=== PATIENT | male | born 1990 | race Caucasian/White ===

== ENCOUNTER 2016-04-08 11:20 | Emergency (ER) | payer OTHER ==
[~2016-04-08] VITALS: Ht 185.4 cm; Wt 74.8 kg
[2016-04-08 11:21] VITALS: Ht 185.4 cm; Wt 74.8 kg
[2016-04-08 12:11] LABS: ADD SCAN DIFF NO
[2016-04-08 12:17] LABS: BASOPHILS % 0.3 % (0.0-2.0); EOSINOPHILS % 0.4 % (0.0-7.0); HEMATOCRIT 45.2 % (42.0-52.0); HEMOGLOBIN 15.6 g/dl (14.0-18.0); LYMPHOCYTES # 1.5 10^3/ul (0.8-2.9); LYMPHOCYTES % 15.2 % (15.0-51.0); MEAN CORPUSCULAR HEMOGLOBIN 33.3 pg (29.0-33.0); MEAN CORPUSCULAR HGB CONC 34.5 g/dl (32.0-37.0); MEAN CORPUSCULAR VOLUME 96.6 fl (82.0-101.0); MEAN PLATELET VOLUME 9.1 fl (7.4-10.4); MONOCYTE # 0.4 10^3/ul (0.3-0.9); MONOCYTES % 4.2 % (0.0-11.0); NEUTROPHIL # 7.7 10^3/ul (1.6-7.5); NEUTROPHILS % 79.3 % (39.0-77.0); PLATELET COUNT 293 10^3/UL (140-415); RED BLOOD COUNT 4.68 10^6/ul (4.70-6.10); RED CELL DISTRIBUTION WIDTH 12.9 % (11.5-14.5); WHITE BLOOD COUNT 9.7 10^3/ul (4.8-10.8)
[2016-04-08 12:29] LABS: ALBUMIN 4.9 g/dl (3.3-4.9); CHLORIDE 99 mmol/L (97-110); POTASSIUM 4.3 mmol/L (3.5-5.1); SODIUM 143 mmol/L (135-144)
[2016-04-08 12:31] LABS: CREATININE 0.87 mg/dl (0.61-1.24)
[2016-04-08 12:32] LABS: ALANINE AMINOTRANSFERASE 24 IU/L (13-69); ALBUMIN/GLOBULIN RATIO 1.48; ALKALINE PHOSPHATASE 64 IU/L (42-121); ANION GAP 19 (8-16); ASPARTATE AMINO TRANSFERASE 20 IU/L (15-46); BILIRUBIN,INDIRECT 0.4 mg/dl (0-1.1); BILIRUBIN,TOTAL 0.4 mg/dl (0.2-1.3); BLOOD UREA NITROGEN 14 mg/dl (7-20); CALCIUM 9.8 mg/dl (8.4-10.2); CARBON DIOXIDE 29 mmol/L (21-31); CREATINE KINASE 76 IU/L (23-200); GLUCOSE 105 mg/dl (70-220); TOTAL PROTEIN 8.2 g/dl (6.1-8.1)
[2016-04-08 12:45] LABS: CK-MB 0.29 ng/ml (0.0-2.4); TROPONIN-I < 0.012 ng/ml (0.00-0.12)
--- NOTE | 2016-04-08 13:03 | ERD ---
ER Documentation Chief Complaint Date/Time DATE: 04/08/16 TIME: 12:59 Chief Complaint C/O HAND PAIN , FEET PAIN , WANTS TO GET HIS BLOOD CHECKED HPI This is a 25-year-old male who presents to the emergency department today complaining of bilateral hand and wrist pain and feet pain that started 6 days ago. Patient states that on Monday he went to urgent care and had labs drawn and was told that he would not get results for several days. Patient states he has pain and tingling. States that he feels his hands are going to lock up". States he works in a [employer] department and does lots of lifting and cutting. States he wears proper footwear and special boots he is required to wear. Denies any fevers or chills. Denies any medical history. ROS All systems reviewed and are negative except as per history of present illness. PMhx/Soc Medical and Surgical Hx: pt denies Medical Hx, pt denies Surgical Hx Hx Alcohol Use: No Hx Substance Use: No Hx Tobacco Use: No Physical Exam Vitals Vital Signs Date Time Temp Pulse Resp B/P Pulse Ox O2 Delivery O2 Flow Rate FiO2 04/08/16 11:21 98.6 108 18 129/71 100 Physical Exam Const: NAD Head: Atraumatic Eyes: Normal Conjunctiva ENT: Normal External Ears, Nose and Mouth. Neck: Full range of motion..~ No meningismus. Resp: Clear to auscultation bilaterally Cardio: Regular rate and rhythm, no murmurs Abd: Soft, non tender, non distended. Normal bowel sounds Skin: No petechiae or rashes Back: No midline or flank tenderness MSK: Bilateral hands and forearms with no obvious deformity. No effusion. No ecchymosis. Full active range of motion. Pulses 2+. Distal neurovascularly intact. Bilateral feet tenderness to palpation MTP and plantar fascial area. No obvious deformity. No effusion. No ecchymosis. Pulses 2+. Distal neurovascularly intact. Neur: Awake and alert Psych: Normal Mood and Affect Result Diagram: 04/08/16 1200 04/08/16 1200 Results 24 hrs Laboratory Tests Test 04/08/16 11:46 04/08/16 12:00 Urine Bilirubin NEGATIVE Urine Clarity CLEAR Urine Color LT. YELLOW Urine Glucose NEGATIVE% Urine Hemoglobin TRACE Urine Ketones NEGATIVE Urine Leukocyte Esterase NEGATIVE Urine Microscopic RBC NONE SEEN/HPF Urine Microscopic WBC NONE SEEN/HPF Urine Nitrite NEGATIVE Urine Specific [place] 1.010 Urine Total Protein NEGATIVE Urine Urobilinogen 0.2 E.U./dL Urine pH 6.5 Alanine Aminotransferase (ALT/SGPT) 24IU/L Albumin 4.9g/dl Albumin/Globulin Ratio 1.48 Alkaline Phosphatase 64IU/L Anion Gap 19 Aspartate Amino Transf (AST/SGOT) 20IU/L Basophils # 0.010^3/ul Basophils % 0.3% Blood Urea Nitrogen 14mg/dl Calcium Level 9.8mg/dl Carbon Dioxide Level 29mmol/L Chloride Level 99mmol/L Creatine Kinase 76IU/L Creatine Kinase Index 0.4 Creatinine 0.87mg/dl Creatinine Kinase MB (Mass) 0.29ng/ml Direct Bilirubin 0.00mg/dl Eosinophils # 0.010^3/ul Eosinophils % 0.4% Erythrocyte Sedimentation Rate 2mm/Hr Globulin 3.30g/dl Glucose Level 105mg/dl Hematocrit 45.2% Hemoglobin 15.6g/dl Indirect Bilirubin 0.4mg/dl Lymphocytes # 1.510^3/ul Lymphocytes % 15.2% Mean Corpuscular Hemoglobin 33.3pg Mean Corpuscular Hemoglobin Concent 34.5g/dl Mean Corpuscular Volume 96.6fl Mean Platelet Volume 9.1fl Monocytes # 0.410^3/ul Monocytes % 4.2% Neutrophils # 7.710^3/ul Neutrophils % 79.3% Nucleated Red Blood Cells # 0.010^3/ul Nucleated Red Blood Cells % 0.0/100WBC Platelet Count 00149^3/UL Potassium Level 4.3mmol/L Red Blood Count 4.6810^6/ul Red Cell Distribution Width 12.9% Sodium Level 143mmol/L Total Bilirubin 0.4mg/dl Total Protein 8.2g/dl Troponin I < 0.012ng/ml White Blood Count 9.710^3/ul Procedures/MDM There is a 25-year-old male who presents the emergency department today complaining of bilateral hand and feet pain and tingling for the past 6 days. Patient was requesting laboratory work patient did have labs done however he was not going to get results until next week and was stating of the problem was getting worse. I did obtain laboratory work as well as a UA to rule out possible rhabdomyolysis even the patient's work history. Laboratory work is no elevated white blood cell count. He is not anemic. Platelets are within normal limits. Electrolytes are within normal limits. Liver function is normal limits. Glucose is within normal limits. CK-MB is negative Troponin is negative ESR is within normal limits. UA is negative. I have explained all of the results to the patient. 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 Patient indicated that the pain was making him have panic attacks and his numbness and tingling may also be related anxiety. any heart palpitations. I do not feel the patient requires a EKG. Patient's foot pain may also be related to plantar fascial pain. Patient will be given a prescription for Naprosyn. He was instructed to follow- up with a primary care physician. I will give him a list of resources. Discussed the patient with Dr. David and he is in agreement with the plan. Departure Diagnosis: Primary Impression: Numbness and tingling Additional Impression: Encounter for laboratory test Condition: JALEN Zamudio PA-C Apr 08, 2016 13:03
[2016-04-08 13:22] LABS: ADD UMIC YES; URINE BILIRUBIN (Dip) NEGATIVE (NEGATIVE); URINE BLOOD (Dip) TRACE (NEGATIVE); URINE COLOR LT. YELLOW (YELLOW); URINE GLUCOSE (Dip) NEGATIVE (NEGATIVE); URINE KETONES (Dip) NEGATIVE (NEGATIVE); URINE LEUKOCYTE ESTERASE (Dip) NEGATIVE (NEGATIVE); URINE NITRITE (Dip) NEGATIVE (NEGATIVE); URINE TOTAL PROTEIN (Dip) NEGATIVE (NEGATIVE); URINE UROBILINOGEN (Dip) 0.2 E.U./dL (0.1-1.0)
[2016-04-08 13:40] LABS: URINE RBCS NONE SEEN /HPF (0)
== END 2016-04-08 14:54 | disposition home or self-care (01) ==
LOC: FTE 11:20
DX: R20.0 Anesthesia of skin (principal); Z00.00 Encounter for general adult medical examination without abnormal findings
CPT/HCPCS: 80053; 81001; 81003; 82550; 82553; 84484; 85025; 85651; 99283

== ENCOUNTER 2016-08-27 13:18 | Emergency (ER) | payer MEDICAID, OTHER ==
[~2016-08-27] VITALS: Wt 73.5 kg
[2016-08-27] MEDS ORDERED: SOD CHLORIDE 0.9% 1,000 ML IV ONE (14:00)
[2016-08-27 14:20] LABS: ADD SCAN DIFF NO
[2016-08-27 14:24] LABS: BASOPHILS % 0.6 % (0.0-2.0); EOSINOPHILS % 0.8 % (0.0-7.0); HEMATOCRIT 41.4 % (42.0-52.0); HEMOGLOBIN 14.4 g/dl (14.0-18.0); LYMPHOCYTES # 1.4 10^3/ul (0.8-2.9); LYMPHOCYTES % 26.6 % (15.0-51.0); MEAN CORPUSCULAR HEMOGLOBIN 32.9 pg (29.0-33.0); MEAN CORPUSCULAR HGB CONC 34.8 g/dl (32.0-37.0); MEAN CORPUSCULAR VOLUME 94.5 fl (82.0-101.0); MEAN PLATELET VOLUME 9.4 fl (7.4-10.4); MONOCYTE # 0.4 10^3/ul (0.3-0.9); NEUTROPHIL # 3.3 10^3/ul (1.6-7.5); NEUTROPHILS % 63.6 % (39.0-77.0); PLATELET COUNT 329 10^3/UL (140-415); RED BLOOD COUNT 4.38 10^6/ul (4.70-6.10); RED CELL DISTRIBUTION WIDTH 11.8 % (11.5-14.5); WHITE BLOOD COUNT 5.2 10^3/ul (4.8-10.8)
--- NOTE | 2016-08-27 14:35 | RADRPT ---
PROCEDURE: CT Brain without contrast. CLINICAL INDICATION: Weakness and left side numbness. TECHNIQUE: A CT of the brain without contrast was performed utilizing axial sections from the skul l base through the vertex. The patient was scanned without intravenous contrast enhancement. Sag[place] l and coronal reformatted images were obtained using the data from the axial images. Total exam DLP is 720.23 mGy-cm. CTDIvol is 45.01 mGy. One or more of the following dose reduction techniques we re used: Automated exposure control, adjustment of the mA and/or kV according to patient size, use o f iterative reconstruction technique. COMPARISON: None available FINDINGS: There is normal teran-white matter differentiation. The ventricles and cisterns are normal. There is no intracranial hemorrhage or space-occupying lesion. There is no skull fracture or lytic lesion. IMPRESSION: 1. Normal noncontrast CT scan of the brain. RPTAT: QQ .Kyle Claros MD, MD Date Time Electronically viewed and signed by .Kyle Claros MD, on 08/27/2016 14:35 .R/
[2016-08-27 14:45] LABS: ALBUMIN 5.1 g/dl (3.3-4.9); ALBUMIN/GLOBULIN RATIO 1.59; BILIRUBIN,INDIRECT 0.2 mg/dl (0-1.1); BILIRUBIN,TOTAL 0.2 mg/dl (0.2-1.3); CALCIUM 9.6 mg/dl (8.4-10.2); CREATININE 0.66 mg/dl (0.61-1.24); POTASSIUM 4.3 mmol/L (3.5-5.1); TOTAL PROTEIN 8.3 g/dl (6.1-8.1)
[2016-08-27 15:41] VITALS: BP 122/71; PULSE 61; RESP 19
--- NOTE | 2016-08-27 15:42 | ERD ---
ER Documentation Chief Complaint Date/Time DATE: 08/27/16 TIME: 15:33 Chief Complaint LEFT ARM WEAKNESS/TINGLING SINCE 11AM RECENTLY RX LYRICA HPI Patient is a 26-year-old male with a history of panic disorder who presents to the emergency department for concerns of left arm weakness, numbness and tingling since 11 AM this morning. Patient denies any new trauma or falls. Patient states that he was sitting at his desk when he developed numbness and tingling is well as weakness of his left arm. Patient states he is unable to lift his left arm. Patient denies any fevers or chills. Patient denies any URI symptoms. Patient denies any slurred speech, difficulty ambulating, lower extremity weakness, chest pain, SOB. Patient denies any headache, blurry vision , nausea, vomiting, LOC. Patient states he started taking Lyrica 3 days ago and is unsure of his symptoms are due to taking this medication. Patient is taking Lyrica for "nerve pain". Patient reports seeing numerous physicians including neurologists for his symptoms. Patient states that he has had numbness and tingling for the last few months however his arm weakness is new. ROS All systems reviewed and are negative except as per history of present illness. Allergies Allergies: Coded Allergies: No Known Allergy (Unverified , 08/27/16) PMhx/Soc Medical and Surgical Hx: pt denies Surgical Hx History of Surgery: No Anesthesia Reaction: No Hx Neurological Disorder: No Hx Respiratory Disorders: No Hx Cardiac Disorders: No Hx Psychiatric Problems: No Hx Miscellaneous Medical Probl: Yes (nerve pain) Hx Alcohol Use: No Hx Substance Use: No Hx Tobacco Use: No Smoking Status: Former smoker Physical Exam Vitals Vital Signs Date Time Temp Pulse Resp B/P Pulse Ox O2 Delivery O2 Flow Rate FiO2 08/27/16 15:41 61 19 122/71 99 Room Air 08/27/16 13:25 99.9 78 20 141/74 99 Physical Exam GENERAL: Well-developed, well-nourished male. Appears in no acute distress. HEAD: Normocephalic, atraumatic. EYES: Pupils are equally reactive bilaterally. EOMs grossly intact. No conjunctival erythema. ENT: Moist mucous membranes. No uvula deviation. No kissing tonsils. NECK: Supple. No meningismus. Normal range of motion of the neck. LUNG: Clear to auscultation bilaterally. No rhonchi, wheezing, rales or coarse breath sounds. HEART: Regular rate and rhythm. No murmurs, rubs or gallops. EXTREMITIES: Equal pulses bilaterally. No peripheral clubbing, cyanosis or edema. No unilateral leg swelling. NEUROLOGIC: Alert and oriented x3, cooperative. Mood and affect appropriate to situation. Cranial nerves II through XII are grossly intact. Normal speech. Motor exam: 5/5 strength in lower extremities. Decreased strength in left upper extremity. Sensory exam: Sensation intact to light touch on all four extremities. Steady gait. No pronator drift. SKIN: Normal color. Warm and dry. No rashes or lesions. PSYCH: anxious Result Diagram: 08/27/16 1405 08/27/16 1405 Results 24 hrs Laboratory Tests Test 08/27/16 14:05 White Blood Count 5.210^3/ul Red Blood Count 4.3810^6/ul Hemoglobin 14.4g/dl Hematocrit 41.4% Mean Corpuscular Volume 94.5fl Mean Corpuscular Hemoglobin 32.9pg Mean Corpuscular Hemoglobin Concent 34.8g/dl Red Cell Distribution Width 11.8% Platelet Count 53903^3/UL Mean Platelet Volume 9.4fl Neutrophils % 63.6% Lymphocytes % 26.6% Monocytes % 7.0% Eosinophils % 0.8% Basophils % 0.6% Nucleated Red Blood Cells % 0.0/100WBC Neutrophils # 3.310^3/ul Lymphocytes # 1.410^3/ul Monocytes # 0.410^3/ul Eosinophils # 0.010^3/ul Basophils # 0.010^3/ul Nucleated Red Blood Cells # 0.010^3/ul Sodium Level 145mmol/L Potassium Level 4.3mmol/L Chloride Level 99mmol/L Carbon Dioxide Level 27mmol/L Anion Gap 23 Blood Urea Nitrogen 8mg/dl Creatinine 0.66mg/dl Glucose Level 102mg/dl Calcium Level 9.6mg/dl Total Bilirubin 0.2mg/dl Direct Bilirubin 0.00mg/dl Indirect Bilirubin 0.2mg/dl Aspartate Amino Transf (AST/SGOT) 27IU/L Alanine Aminotransferase (ALT/SGPT) 19IU/L Alkaline Phosphatase 55IU/L Total Protein 8.3g/dl Albumin 5.1g/dl Globulin 3.20g/dl Albumin/Globulin Ratio 1.59 Current Medications Medications (Trade) Dose Ordered Sig/Cristopher Route PRN Reason Start Time Stop Time Status Last Admin Dose Admin Sodium Chloride (NS) 1,000 ml @ 1,000 mls/hr Q1H ONCE IV 08/27/16 14:00 08/27/16 14:59 DC 08/27/16 14:08 Procedures/MDM ED COURSE: The patient was stable throughout ED course. I kept the patient and/or family informed of laboratory and diagnostic imaging results throughout the ED course. DIAGNOSTIC IMAGING: Read by radiologist. DIAGNOSTIC IMAGING REPORT Patient: FAREED HYATT : 1990 Age: 26 Sex: M MR #: [id number] DOS: 08/27/16 1347 Ordering MD: FERNANDO URENA PA-C Location: [facility] Room/Bed: PROCEDURE: CT Brain without contrast. CLINICAL INDICATION: Weakness and left side numbness. TECHNIQUE: A CT of the brain without contrast was performed utilizing axial sections from the skull base through the vertex. The patient was scanned without intravenous contrast enhancement. Sag[place]l and coronal reformatted images were obtained using the data from the axial images. Total exam DLP is 720.23 mGy-cm. CTDIvol is 45.01 mGy. One or more of the following dose reduction techniques were used: Automated exposure control, adjustment of the mA and/or kV according to patient size, use of iterative reconstruction technique. COMPARISON: None available FINDINGS: There is normal teran-white matter differentiation. The ventricles and cisterns are normal. There is no intracranial hemorrhage or space-occupying lesion. There is no skull fracture or lytic lesion. IMPRESSION: 1. Normal noncontrast CT scan of the brain. RPTAT: QQ .Kyle Claros MD, MD Date Time Electronically viewed and signed by .Kyle Claros MD, on 08/27/2016 14:35 .R/ CC: AYANNA,JISSILLE PA-C DIAGNOSTIC IMAGING REPORT Patient: FAREED HYATT : 1990 Age: 26 Sex: M MR #: [id number] DOS: 08/27/16 1347 Ordering MD: FERNANDO URENA PA-C Location: [facility] Room/Bed: PROCEDURE: CT cervical spine without contrast. CLINICAL INDICATION: Weakness TECHNIQUE: Axial imaging was obtained through the cervical spine using a multi- slice CT scanner. Standard CT scan of the cervical spine without contrast protocols were performed. CTDI: 22.36 and DLP: 631.54. One or more of the following dose reduction techniques were used: - Automated exposure control. - Adjustment of the mA and/or kV according to patient size. Use of iterative reconstruction technique. COMPARISON: None. FINDINGS: There is minimal reversal normal cervical lordosis. There is no evidence of acute fractures or subluxations. There is minimal degenerative enthesopathy involving the anterior superior aspects of the C5 and C6 vertebral bodies. The disk space maintains normal heights. No evidence of disk herniations central spinal canal stenosis or neural foraminal narrowing. The lateral masses are unremarkable. There is no evidence of central spinal canal or neural foraminal stenosis. No evidence of prevertebral soft tissue swelling. No paraspinous masses. Those portions the paranasal sinuses and mastoids imaged are unremarkable. Those portions the upper lung pleural and airway visualized are unremarkable. IMPRESSION: 1. Minimal degenerative enthesopathy as described above. 2. No evidence of acute fractures subluxations or stenosis. 3. An MRI of the cervical spine is suggested if clinically indicated for further evaluation. RPTAT:AAJJ Physician Odalys Date Time Electronically viewed and signed by Physician Odalys on 08/27/2016 16:11 BM/ CC: FERNANDO URENA PA-C PROCEDURES: None. MEDICATIONS GIVEN: IV fluids Patient tolerated medication well with no adverse reactions. MEDICAL DECISION MAKING: Patient is a 26-year-old male who presents with weakness, numbness and tingling to his left arm which started earlier today after starting Lyrica. Vital signs were reviewed. Patient is afebrile. Patient was not hypoxic. Patient was hemodynamically stable. CBC showed no evidence of systemic infection or severe anemia. CMP showed no evidence of significant electrolyte abnormalities, severe acidosis, alkalosis, renal failure, or liver disease. CT brain was unremarkable. CT neck showed Minimal degenerative enthesopathy as described above. No evidence of acute fractures subluxations or stenosis. Upon repeat examinations, patient was able to lift left arm up above his head without any difficult. Patient had full normal active ROM of left arm. Patient had equal bilateral hand medicare nurse strengths. Motor function was noted to be 5/5 on bilateral upper extremities. Upon further discussion, patient stated that his ongoing symptoms were causing him to have panic attacks. Patient requested medication for panic attacks. I advised the patient he should follow up with his PCP for further management and medications. Discussed case with supervising physician Dr. David who agreed patient was stable for outpatient management given complete improvement in symptoms. At this time, the patient's presentation is most consistent with resolved arm weakness and numbness. Patient's symptoms may be related to anxiety or recent new medications. Patient advised to discontinue Lyrica and follow up with his PCP. Low suspicion for electrolyte disturbances, intracranial hemorrhage, intracranial mass, cervical spine herniation, cervical fracture, shoulder dislocation, MS, botulism, transverse myelitis. DISCHARGE: At this time, patient is stable for discharge and outpatient management. Patient provided with a copy of all bloodwork and imaging studies obtained today. I have instructed the patient to follow-up with his/her primary care physician in 1-2 days. I have discussed with the patient the possibility of needing to see a specialist for further workup and imaging studies if symptoms persist. I have instructed the patient to promptly return to the ER for any new or worsening symptoms including increased pain, fever, nausea, vomiting, weakness or LOC. The patient and/or family expressed understanding of and agreement with this plan. All questions were answered. Home care instructions were provided. Departure Diagnosis: Primary Impression: Numbness and tingling in left arm Condition: Stable Patient Instructions: Paraesthesias Referrals: HAMILTON MALONE MD,AUDREY LONDON,DAREN ESCOBEDO MD,MAGNOLIA CHIANG MD [facility] YOU HAVE RECEIVED A MEDICAL SCREENING EXAM AND THE RESULTS INDICATE THAT YOU DO NOT HAVE A CONDITION THAT REQUIRES URGENT TREATMENT IN THE EMERGENCY DEPARTMENT. FURTHER EVALUATION AND TREATMENT OF YOUR CONDITION CAN WAIT UNTIL YOU ARE SEEN IN YOUR DOCTORS OFFICE WITHIN THE NEXT 1-2 DAYS. IT IS YOUR RESPONSIBILITY TO MAKE AN APPOINTMENT FOR FOLOW-UP CARE. IF YOU HAVE A PRIMARY DOCTOR --you should call your primary doctor and schedule an appointment IF YOU DO NOT HAVE A PRIMARY DOCTOR YOU CAN CALL OUR PHYSICIAN REFERRAL HOTLINE AT IF YOU CAN NOT AFFORD TO SEE A PHYSICIAN YOU CAN CHOSE FROM THE FOLLOWING [facility] [address] [facility]. [place] [address] [facility]. [facility] [address] [facility] [facility] [address] [facility] [facility] [address] [facility]. [facility] [address] [facility]. [facility] YOU HAVE RECEIVED A MEDICAL SCREENING EXAM AND THE RESULTS INDICATE THAT YOU DO NOT HAVE A CONDITION THAT REQUIRES URGENT TREATMENT IN THE EMERGENCY DEPARTMENT. FURTHER EVALUATION AND TREATMENT OF YOUR CONDITION CAN WAIT UNTIL YOU ARE SEEN IN YOUR DOCTORS OFFICE WITHIN THE NEXT 1-2 DAYS. IT IS YOUR RESPONSIBILITY TO MAKE AN APPOINTMENT FOR FOLOW-UP CARE. IF YOU HAVE A PRIMARY DOCTOR --you should call your primary doctor and schedule and appointment IF YOU DO NOT HAVE A PRIMARY DOCTOR YOU CAN CALL OUR PHYSICIAN REFERRAL HOTLINE AT . IF YOU CAN NOT AFFORD TO SEE A PHYSICIAN YOU CAN CHOSE FROM THE FOLLOWING [facility] INSTITUTIONS: [facility] [address] [place] [address] [facility] [address] [place] [address] [facility] [address] [place] [address] Additional Instructions: Call your primary care doctor TOMORROW for an appointment during the next 1-2 days.See the doctor sooner or return here if your condition worsens before your appointment time. Stop taking Lyrica. Follow-up with your primary care physician for referral to neurologist. See referral information. FERNANDO URENA PA-C Aug 27, 2016 15:42
--- NOTE | 2016-08-27 16:12 | RADRPT ---
PROCEDURE: CT cervical spine without contrast. CLINICAL INDICATION: Weakness TECHNIQUE: Axial imaging was obtained through the cervical spine using a multi-slice CT scanner. [facility] of the cervical spine without contrast protocols were performed. CTDI: 22.36 and DLP: 631.54. One or more of the following dose reduction techniques were used: - Automated exposure control. - Adjustment of the mA and/or kV according to patient size. Use of iterative reconstruction technique. COMPARISON: None. FINDINGS: There is minimal reversal normal cervical lordosis. There is no evidence of acute fractures or subl uxations. There is minimal degenerative enthesopathy involving the anterior superior aspects of the C5 and C6 vertebral bodies. The disk space maintains normal heights. No evidence of disk herniati ons central spinal canal stenosis or neural foraminal narrowing. The lateral masses are unremarkabl e. There is no evidence of central spinal canal or neural foraminal stenosis. No evidence of preve rtebral soft tissue swelling. No paraspinous masses. Those portions the paranasal sinuses and mastoids imaged are unremarkable. Those portions the upper lung pleural and airway visualized are unremarkable. IMPRESSION: 1. Minimal degenerative enthesopathy as described above. 2. No evidence of acute fractures subluxations or stenosis. 3. An MRI of the cervical spine is suggested if clinically indicated for further evaluation. RPTAT:AAJJ Physician Odalys Date Time Electronically viewed and signed by Physician Odalys on 08/27/2016 16:11 /
== END 2016-08-27 15:41 | disposition home or self-care (01) ==
LOC: FTE 13:18
DX: R20.0 Anesthesia of skin (principal); R20.2 Paresthesia of skin; Z87.891 Personal history of nicotine dependence
CPT/HCPCS: 70450; 72125; 80053; 85025; J7030; 36415

== ENCOUNTER 2016-12-03 10:20 | Emergency (ER) | payer MEDICAID ==
[~2016-12-03] VITALS: Ht 188 cm; Wt 75.0 kg
[2016-12-03 10:23] VITALS: Ht 188 cm; Wt 75.0 kg
[2016-12-03] MEDS ORDERED: ALPR0.5T PO (12:42)
[2016-12-03] MEDS ORDERED: HYDR-3012 PO (12:42)
--- NOTE | 2016-12-03 12:47 | ERD ---
ER Documentation Chief Complaint Chief Complaint pt bib self with c/o feeling sick and anxious , out of xanax HPI 26-year-old male with a history of anxiety presents emergency department requesting medication refill. Patient states that he is in the process of following up with psychiatrist but is unable to do so for 8-12 weeks for insurance. Patient states that he has been experiencing night sweats, chills, and general anxious feeling. He states these are similar symptoms to his prior episodes. 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 He was ultimately diagnosed with anxiety. He states that the medication which best control that is Xanax and hydroxyzine. He denies fever, nausea, vomiting, diarrhea, abdominal pain, cough, shortness of breath or chest pain. ROS All systems reviewed and are negative except as per history of present illness. Medications Home Meds Active Scripts Hydroxyzine Hcl* (Hydroxyzine Hcl*) 50 Mg Tablet, 100 MG PO Q8, #40 TAB Prov:PAMELA AUGUST PA-C 12/03/16 Alprazolam* (Xanax*) 0.5 Mg Tab, 0.5 MG PO Q8H Y for ANXIETY for 14 Days, TAB Prov:PAMELA AUGUST PA-C 12/03/16 Allergies Allergies: Coded Allergies: No Known Allergy (Unverified , 08/27/16) PMhx/Soc Medical and Surgical Hx: pt denies Surgical Hx History of Surgery: No Anesthesia Reaction: No Hx Neurological Disorder: No Hx Respiratory Disorders: No Hx Cardiac Disorders: No Hx Psychiatric Problems: Yes (Anxiety ) Hx Miscellaneous Medical Probl: Yes (nerve pain) Hx Alcohol Use: No Hx Substance Use: No Hx Tobacco Use: No Smoking Status: Never smoker Physical Exam Vitals Vital Signs Date Time Temp Pulse Resp B/P Pulse Ox O2 Delivery O2 Flow Rate FiO2 12/03/16 10:23 97.2 60 16 117/64 100 Physical Exam Const: Well-developed, well-nourished, no acute distress Head: Atraumatic Eyes: Normal Conjunctiva ENT: Normal External Ears, Nose and Mouth. Neck: Full range of motion..~ No meningismus. Resp: Clear to auscultation bilaterally Cardio: Regular rate and rhythm, no murmurs Abd: Soft, non tender, non distended. Normal bowel sounds Skin: No petechiae or rashes Back: No midline or flank tenderness Ext: No cyanosis, or edema Neur: Awake and alert Psych: Normal Mood and Affect Procedures/MDM This is a 26-year-old male with a history of anxiety who presents the emergency department for complaints of night sweats, chills, and anxious feelings. Patient states that his symptoms are normally controlled with hydroxyzine and Xanax which he is currently out of. He has a follow-up appointment scheduled with a psychiatrist in 12 weeks. Upon arrival, patient well-appearing, nontoxic and in no acute distress. Vital signs reviewed and within normal limits. Patient's physical exam unremarkable. History and physical exam consistent with anxiety. Low suspicion for acute coronary syndrome, PE, severe systemic illness or sepsis. Patient will receive a short course of anxiolytics and instructed to follow-up with psychiatrist. Based on patient's history of present illness and physical examination the decision was made to discharge. The patient was re-evaluated after ED treatment and stabilizing measures, and symptoms have improved. There is no evidence of life threatening injuries or illnesses at this time. On re-examination, patient resting in no distress, stable vital signs, reports feeling better and safe for discharge with outpatient follow up with PMD in 1-2 days. Patient given return precautions. Departure Diagnosis: Primary Impression: Night sweats Additional Impression: Anxiety Condition: Good Patient Instructions: Stress Relief: Activities, Stress Relief: Changing Your Response Referrals: [facility] YOU HAVE RECEIVED A MEDICAL SCREENING EXAM AND THE RESULTS INDICATE THAT YOU DO NOT HAVE A CONDITION THAT REQUIRES URGENT TREATMENT IN THE EMERGENCY DEPARTMENT. FURTHER EVALUATION AND TREATMENT OF YOUR CONDITION CAN WAIT UNTIL YOU ARE SEEN IN YOUR DOCTORS OFFICE WITHIN THE NEXT 1-2 DAYS. IT IS YOUR RESPONSIBILITY TO MAKE AN APPOINTMENT FOR FOLOW-UP CARE. IF YOU HAVE A PRIMARY DOCTOR --you should call your primary doctor and schedule an appointment IF YOU DO NOT HAVE A PRIMARY DOCTOR YOU CAN CALL OUR PHYSICIAN REFERRAL HOTLINE AT IF YOU CAN NOT AFFORD TO SEE A PHYSICIAN YOU CAN CHOSE FROM THE FOLLOWING [facility] [id number] [facility]. [facility] [address] [facility] [address] [facility] [facility] [address] [facility]. [facility] [address] [facility]. [facility]. [address] Additional Instructions: Call your primary care doctor TOMORROW for an appointment during the next 1-2 days.See the doctor sooner or return here if your condition worsens before your appointment time. FOLLOW UP WITH PSYCHCHIATRIST SOON POSSIBLE PAMELA AUGUST PA-C Dec 03, 2016 12:47
== END 2016-12-03 12:55 | disposition home or self-care (01) ==
LOC: FTE 10:20
DX: R61 Generalized hyperhidrosis (principal)
CPT/HCPCS: 99284